=== PATIENT | male | born 1985 | race Caucasian/White ===

== ENCOUNTER 2025-06-11 10:50 | Emergency (ER) | payer SELFPAY ==
[2025-06-11 10:57] VITALS: BP 126/82
--- NOTE | 2025-06-11 11:36 | ED.GENMED ---
History of Present Illness
General
Chief Complaint: Withdrawal Symptoms
Source: patient
Time Seen by Provider: 06/11/25 11:27
History of Present Illness
History of Present Illness:
39-year-old male presenting to the emergency department for evaluation and ultimately placement at an inpatient detox facility for buprenorphine use. Patient gets monthly injections, last injection was 1 month ago. He has no specific physical
concerns at this time noting he feels as if he is in his usual state of health. Patient is desiring to get off of this medication as part of a new employment opportunity.
Past History
Past History
ED Past Medical History: None
ED Past Surgical History: None
Social History
Tobacco: Non-smoker
Alcohol: None
Drug: Former user
Personal:
Living: with family
Review of Systems
Review of Systems
All Other Systems: ROS reviewed and negative except as documented in HPI and ROS
Phy Exam
Physical Exam
Physical Exam:
GENERAL: Alert , in no apparent distress
EYE: conjunctiva clear
Head: Normocephalic atraumatic
NECK: Supple,
ENT: mmm.
LUNGS: no acute respiratory distress
NEUROLOGICAL: Alert and oriented
SKIN: Warm and dry, skin intact.
MUSCULOSKELETAL: well perfused.
PSYCH: Normal and appropriate interaction.
Scores
Heart Failure Risk
Heart Failure Risk Score: Not Applicable
Heart Score for Chest Pain Patients
STEMI patient?: Not applicable
Withdrawal Assessment of Alcohol
Withdrawal Assessment Completed?: Not applicable
Course
Vital Signs
Initial and Last Documented VS:
Initial Vital Signs
Temp Pulse Resp BP Pulse Ox
97.7 F 70 18 126/82 99
06/11/25 10:57 06/11/25 10:57 06/11/25 10:57 06/11/25 10:57 06/11/25 10:57
Last Documented Vital Signs
Temp Pulse Resp BP Pulse Ox
97.7 F 78 13 126/82 99
06/11/25 11:40 06/11/25 11:40 06/11/25 11:40 06/11/25 10:57 06/11/25 11:39
MDM/Problems Addressed
Differential Diagnosis Includes:
Medication addiction
Potential for withdrawal but no active signs of withdrawal
No concern for opiate abuse at this time
MDM/Problems Addressed:
39-year-old male presenting to the ER for help with obtaining inpatient detox for buprenorphine use. Patient without any current physical concerns. [facility] contacted and will help facilitate getting patient to inpatient management. Disposition
pending.
*Pulse Oximetry
SaO2: 99
Oxygen Mode of Delivery: Room air
Patient hypoxic: no
*Critical Care Note
Total Time (30-74mins, 75-104mins- exclusive of procedures): Not Applicable
Patient Management
Escalation/DeEscalation of care consider admission/obs:
Due to the patient being on a long-acting Brixadi injectable medication we ultimately discussed with the patient that we would be unable to precipitate a withdrawal for him and get him to a current inpatient rehab as this medicine will likely be in
his system for multiple weeks. Patient will follow-up with his prescribing provider about further treatment and getting off of the medications patient is currently taking. He is stable for discharge home and aware of return precautions to the ER.
ED Attending Note
-
Portions of this chart may have been created with voice recognition software.� Occasional wrong word or��sound alike� substitutions may have occurred due to the inherent limitations of voice recognition software.
Discharge Plan
Departure
Patient Disposition: Home (Routine Discharge)
Date of Disposition: 06/11/25
Time of Disposition: 13:55
Patient with high blood pressure during this ER visit?: No
Discharge Problem:
Encounter for monitoring Suboxone maintenance therapy
Referrals:
NONE,* [Family Provider, Internal Medicine]
Interventions
Interventions:
*Risk Screen - Suicide Last Done: 06/11/25 10:57
*General Assessment Last Done: 06/11/25 10:57
*Neglect/Abuse Screening Last Done: 06/11/25 10:57
*ED COVID-19 Vaccine History Last Done: 06/11/25 13:00
*ED Influenza Vaccine History Last Done: 06/11/25 13:00
[facility] Fall Risk Assessment Tool Last Done: 06/11/25 11:40
*Nursing Disposition Last Done: 06/11/25 14:10
ED- Neurological Assessment Last Done: 06/11/25 11:40
ED-Psychological Assessment Last Done: 06/11/25 12:46
Discharge Date and Time
Print Language: WALLISIAN
[2025-06-11 11:40] VITALS: BMI 26.0
--- NOTE | 2025-06-11 14:10 | EDRN ---
Discharge instructions given to patient by Malick Moody PA-C.
== END 2025-06-11 14:11 | disposition home or self-care (01) ==
LOC: EMR 10:50
PROVIDERS: EMERGENCY PHYSICIAN Emergency Medicine
DX: Z51.81 Encounter for therapeutic drug level monitoring (principal)
CPT/HCPCS: 99282